=== PATIENT | female | born 1980 ===

== ENCOUNTER 2018-07-29 10:19 | Inpatient (IN) | payer OTHER ==
[~2018-07-29] VITALS: Ht 160 cm; Wt 67.1 kg
[2018-08-05] MEDS ORDERED: LEVO-T50 MCG PO (11:30)
[2018-08-10] MEDS ORDERED: Tylenol #3 PO (09:14)
== END 2018-08-10 12:37 | DRG 743 ==
LOC: O/R 08-08 05:25 → SURH 08-08 10:15 → OB/GYN 08-08 11:05 → SURH 08-08 12:45 → OB/GYN 08-10 12:37
PROVIDERS: ADMIT Obstetrics & Gynecology
PROC: 0USG4ZZ Reposition Vagina, Percutaneous Endoscopic Approach (ICD-10-PCS; 2018-08-08)
PROC: 0TJB8ZZ Inspection of Bladder, Via Natural or Artificial Opening Endoscopic (ICD-10-PCS; 2018-08-08)
PROC: 0T9B70Z Drainage of Bladder with Drainage Device, Via Natural or Artificial Opening (ICD-10-PCS; 2018-08-08)
PROC: 0UT9FZZ Resection of Uterus, Via Natural or Artificial Opening With Percutaneous Endoscopic Assistance (ICD-10-PCS; principal; 2018-08-08 12:45)
PROC: 0UQF4ZZ Repair Cul-de-sac, Percutaneous Endoscopic Approach (ICD-10-PCS; 2018-08-08 12:45)
DX: N85.01 Benign endometrial hyperplasia (principal); N92.1 Excessive and frequent menstruation with irregular cycle